=== PATIENT | male | born 1995 | race Caucasian/White ===

== ENCOUNTER 2020-11-12 00:35 | Emergency (ER) | payer SELFPAY | END 2020-11-12 00:43 | disposition left against medical advice (07) | LOC: ER 00:35 | DX: T24.009A Burn of unspecified degree of unspecified site of unspecified lower limb, except ankle and foot, initial encounter (principal); Z53.21 Procedure and treatment not carried out due to patient leaving prior to being seen by health care provider; X08.8XXA Exposure to other specified smoke, fire and flames, initial encounter; Y93.89 Activity, other specified; Y92.89 Other specified places as the place of occurrence of the external cause; Y99.8 Other external cause status ==